=== PATIENT | female | born 1995 | race Caucasian/White ===

== ENCOUNTER 2016-09-14 13:45 | Emergency (ER) | payer SELFPAY ==
[2016-09-14 13:53] VITALS: BP 97/61
--- NOTE | 2016-09-14 15:03 | Emergency Department Report ---
ED Female HPI - General Chief complaint: Urogenital-Female Stated complaint: DIZZY/ODOR W/URINATION/HEADACHE Time Seen by Provider: 09/14/16 14:22 Source: patient Mode of arrival: Ambulatory Limitations: No Limitations - History of Present Illness Initial comments: Patient c/o strong odor to her urine and intermittent headache for several months. States headache feels like tightness around her head that goes away when she sleeps or takes Ibuprofen. Reports some vaginal discharge that is sometimes white or yellow. Denies fever, chills, change or blurring of her vision, vaginal pain or bleed, abdomen/pelvic/flank pain, dysuria, urgency, frequency. LMP 08/24/16 - Related Data Previous Rx's Medication Instructions Recorded Last Taken Type Acetaminophen/Codeine [Tylenol #3] 1 tab PO Q6H PRN #12 tab 11/27/14 Unknown Rx Doxycycline [Vibramycin CAP] 100 mg PO Q12HR #20 capsule 05/03/15 Unknown Rx Ibuprofen [Motrin] 600 mg PO Q8H PRN #30 tablet 05/03/15 Unknown Rx Butalb/Acetamin/Caff 50-325-40 1 each PO Q4H PRN #10 tablet 09/14/16 Unknown Rx [Fioricet] Fluconazole [Diflucan TAB] 150 mg PO ONCE #1 tablet 09/14/16 Unknown Rx Nitrofurantoin [place]/M-Cryst 100 mg PO Q12HR #14 capsule 09/14/16 Unknown Rx [Macrobid CAP] metroNIDAZOLE [Flagyl] 500 mg PO Q12HR #20 tab 09/14/16 Unknown Rx Allergies Allergy/AdvReac Type Severity Reaction Status Date / Time No Known Allergies Allergy Verified 11/11/14 11:34 ED Review of Systems ROS: Stated complaint: DIZZY/ODOR W/URINATION/HEADACHE Other details as noted in HPI ED Past Medical Hx - Past Medical History Previous Medical History?: No Hx Heart Attack/AMI: Yes - Surgical History Past Surgical History?: Yes Additional Surgical History: right wrist surgery - Social History Smoking Status: Never Smoker Substance Use Type: None - Medications Home Medications: Home Medications Medication Instructions Recorded Confirmed Last Taken Type Acetaminophen/Codeine [Tylenol #3] 1 tab PO Q6H PRN #12 tab 11/27/14 Unknown Rx Doxycycline [Vibramycin CAP] 100 mg PO Q12HR #20 capsule 05/03/15 Unknown Rx Ibuprofen [Motrin] 600 mg PO Q8H PRN #30 tablet 05/03/15 Unknown Rx Butalb/Acetamin/Caff 50-325-40 1 each PO Q4H PRN #10 tablet 09/14/16 Unknown Rx [Fioricet] Fluconazole [Diflucan TAB] 150 mg PO ONCE #1 tablet 09/14/16 Unknown Rx Nitrofurantoin [place]/M-Cryst 100 mg PO Q12HR #14 capsule 09/14/16 Unknown Rx [Macrobid CAP] metroNIDAZOLE [Flagyl] 500 mg PO Q12HR #20 tab 09/14/16 Unknown Rx ED Physical Exam - General Limitations: No Limitations General appearance: alert, in no apparent distress - Head Head exam: Present: atraumatic, normocephalic, normal inspection - Eye Eye exam: Present: normal appearance, PERRL, EOMI. Absent: scleral icterus, conjunctival injection, periorbital swelling, periorbital tenderness - ENT ENT exam: Present: normal exam, TM's normal bilaterally, normal external ear exam - Neck Neck exam: Present: normal inspection, full ROM. Absent: tenderness, meningismus, lymphadenopathy - Respiratory Respiratory exam: Present: normal lung sounds bilaterally. Absent: respiratory distress - Cardiovascular Cardiovascular Exam: Present: regular rate, normal rhythm - GI/Abdominal GI/Abdominal exam: Present: soft, normal bowel sounds. Absent: distended, tenderness, guarding, rebound, rigid - Extremities Exam Extremities exam: Present: normal inspection, full ROM, normal capillary refill. Absent: tenderness, pedal edema, joint swelling - Back Exam Back exam: Present: normal inspection, full ROM. Absent: tenderness, CVA tenderness (R), CVA tenderness (L) - Neurological Exam Neurological exam: Present: alert, oriented X3, normal gait, reflexes normal. Absent: motor sensory deficit - Psychiatric Psychiatric exam: Present: normal affect, normal mood - Skin Skin exam: Present: warm, dry, intact, normal color. Absent: rash, cyanosis, diaphoretic, erythema, petechiae, pallor, abrasion - Other Other exam information: DETAILED NEUROLOGICAL EXAMINATION: At present the patient is awake, alert and fully oriented. There is no evidence of cognitive or language dysfunction. Cranial nerves: Visual hernandez are full. Extraocular movements full. Pupils equal , round, react to light. There is no evidence of nystagmus noted. Fifth nerve function is normal. There is no facial asymmetry noted. Lower cranial nerves are normal. Manual motor testing reveals good tone and bulk throughout. There is no evidence of pronator drift or decreased fine finger movements. Muscle strength is 5/5 throughout. Deep tendon reflexes are 2+ throughout with downgoing toes. Sensory examination is intact to all modalities including stereognosis, graphesthesia. The patient is able to walk toe-heel and tandem walk. Finger-to- nose and [id number] moves are normal. I appreciated no obvious focal neuro deficits. ED Course Vital Signs 09/14/16 13:51 Temperature 98.8 F Pulse Rate 70 Respiratory 16 Rate Blood Pressure 97/61 O2 Sat by Pulse 97 Oximetry ED Medical Decision Making - Medical Decision Making 21 YOF with UTI based on UA result; BV on wet prep; and tension-type headache. Patient is stable. She ill be DC'd on appropriate meds for these (see rx). Patient education, follow up/referral, and return instructions provided. She verbalized understanding and is agreeable to plan. Critical care attestation.: If time is entered above; I have spent that time in minutes in the direct care of this critically ill patient, excluding procedure time. ED Disposition Clinical Impression: Tension headache, Vaginal discharge UTI (urinary tract infection) Qualifiers: Urinary tract infection type: site unspecified Hematuria presence: without hematuria Qualified Code(s): N39.0 - Urinary tract infection, site not specified Disposition: DISCHARGED TO HOME OR SELFCARE Is pt being admited?: No Does the pt Need Aspirin: No Condition: Stable Instructions: Bacterial Vaginosis (ED), Urinary Tract Infection in Women (ED), Tension Headache (ED) Prescriptions: Butalb/Acetamin/Caff 50-325-40 [Fioricet] 1 each PO Q4H PRN #10 tablet PRN Reason: Headache Fluconazole [Diflucan TAB] 150 mg PO ONCE #1 tablet metroNIDAZOLE [Flagyl] 500 mg PO Q12HR #20 tab Nitrofurantoin [place]/M-Cryst [Macrobid CAP] 100 mg PO Q12HR #14 capsule Referrals: PRIMARY CARE, [Primary Care Provider] - 3-5 Days ROMARIO MERAZ MD [Staff Physician] - 3-5 Days
[2016-09-14] MEDS ORDERED: FIORICET PO ONE (15:19)
[2016-09-14 15:57] LABS: Bilirubin,Urine NEG (Negative); Blood,Urine NEG (Negative); Ketones,Urine NEG (Negative); Leukocyte Esterase,Urine LG (Negative); Mucus,Urine FEW /HPF; Nitrite,Urine POS (Negative); Protein,Urine <15 mg/dL mg/dL (Negative); Urobilinogen,Urine < 2.0 mg/dL (<2.0)
== END 2016-09-14 17:11 | disposition home or self-care (01) ==
LOC: ED 13:45
DX: N39.0 Urinary tract infection, site not specified (principal); G44.209 Tension-type headache, unspecified, not intractable; I25.2 Old myocardial infarction
CPT/HCPCS: 81001; 81025; 87210; 99284

== ENCOUNTER 2016-12-18 13:18 | Emergency (ER) | payer SELFPAY ==
[2016-12-18 13:47] VITALS: BP 96/61
--- NOTE | 2016-12-18 14:11 | Emergency Department Report ---
Entered by ANNE-MARIE CARLOS, acting as scribe for STEPHANIE ESTRELLA NP. Chief Complaint: Syncope Stated Complaint: SYNCOPE Time Seen by Provider: 12/18/16 14:06 - HPI History of Present Illness: 21 year old female who is non toxic appearing, non ill appearing, in no acute distress presents s/p witnessed syncopal episode this morning. She reports feeling dizzy immediately prior to episodes. She reports associated SOB but denies abdominal pain, N/V, chest pain. She is reportedly 18 weeks . Denies vaginal bleeding, vaginal discharge. - ROS Review of Systems: Reports syncope, dizziness, shortness of breath. Denies nausea, vomiting, abdominal pain, vaginal bleeding, vaginal discharge, chest pain. - Exam Vital Signs: Vital Signs 12/18/16 13:42 Temperature 98.7 F Pulse Rate 73 Blood Pressure 96/61 O2 Sat by Pulse 100 Oximetry Physical Exam: Constitutional: Non toxic appearing, NAD. No obvious signs of external trauma. Cardiovascular: Normal rate and rhythm with normal S1/S2 sounds. Respiratory: No respiratory distress. Lung sounds clear to auscultation bilaterally. Abdomen: Abdomen is gravid. No tenderness to palpation in all quadrants. MSE screening note: Focused history and physical exam performed. Due to findings the following was ordered:EKG, CCK, CBC, CMP, serum HCG quantitative, UA ED Disposition for MSE Condition: Stable This documentation as recorded by the scribe,ANNE-MARIE CARLOS,accurately reflects the service I personally performed and the decisions made by DELORES figueroa MARTIN, ASTON.
[2016-12-18 14:37] LABS: Basophils % (Auto) 0.3 % (0.0-1.8); Eosinophils % (Auto) 0.9 % (0.0-4.3); Hematocrit 33.5 % (30.3-42.9); Hemoglobin 11.4 gm/dl (10.1-14.3); Mean Corpuscular HGB Conc 34 % (30-34); Mean Corpuscular Hemoglobin 27 pg (28-32); Mean Corpuscular Volume 80 fl (79-97); Platelet Count 229 K/mm3 (140-440); Red Blood Count 4.18 M/mm3 (3.65-5.03); Red Cell Distribution Width 13.2 % (13.2-15.2); White Blood Count 10.3 K/mm3 (4.5-11.0)
[2016-12-18 14:47] LABS: Alanine Aminotransferase 7 units/L (7-56); Albumin 3.9 g/dL (3.9-5); Albumin/Globulin Ratio 1.3 %; Alkaline Phosphatase 57 units/L (35-129); Anion Gap 15 mmol/L; BUN/Creatinine Ratio 16.66; Blood Urea Nitrogen 5 mg/dL (7-17); Calcium 8.7 mg/dL (8.4-10.2); Carbon Dioxide 23 mmol/L (22-30); Chloride 99.6 mmol/L (98-107); Creatine Kinase 48 units/L (30-135); Glucose 80 mg/dL (65-100); Potassium 3.8 mmol/L (3.6-5.0); Sodium 134 mmol/L (137-145); Total Protein 6.9 g/dL (6.3-8.2)
[2016-12-18 15:30] LABS: Creatine Kinase MB < 1.0 ng/mL (0.0-4.0)
[2016-12-18 16:02] LABS: Bacteria,Urine 1+ /HPF (Negative); Bilirubin,Urine NEG (Negative); Blood,Urine NEG (Negative); Ketones,Urine NEG (Negative); Leukocyte Esterase,Urine LG (Negative); Mucus,Urine FEW /HPF; Nitrite,Urine NEG (Negative); Protein,Urine <15 mg/dL mg/dL (Negative); Urobilinogen,Urine < 2.0 mg/dL (<2.0)
--- NOTE | 2016-12-20 19:56 | ED Elopement Review ---
ED Pt Elopement review - Results review Lab results: Laboratory Tests 12/18/16 12/18/16 12/18/16 14:14 14:14 14:14 WBC 10.3 RBC 4.18 Hgb 11.4 Hct 33.5 MCV 80 MCH 27 L MCHC 34 RDW 13.2 Plt Count 229 Lymph % (Auto) 14.1 [place] % (Auto) 4.1 Eos % (Auto) 0.9 Baso % (Auto) 0.3 Lymph # 1.5 [place] # 0.4 Eos # 0.1 Baso # 0.0 Seg Neutrophils % 80.6 H Seg Neutrophils # 8.3 H Sodium 134 L Potassium 3.8 Chloride 99.6 Carbon Dioxide 23 Anion Gap 15 BUN 5 L Creatinine 0.3 L Estimated GFR > 60 BUN/Creatinine Ratio 16.66 Glucose 80 Calcium 8.7 Total Bilirubin 0.20 AST 12 ALT 7 Alkaline Phosphatase 57 Total Creatine Kinase 48 CK-MB (CK-2) < 1.0 CK-MB (CK-2) Rel Index 2.0 Total Protein 6.9 Albumin 3.9 Albumin/Globulin Ratio 1.3 HCG, Quant 58091 H Urine Color Urine Turbidity Urine pH Ur Specific [place] Urine Protein Urine Glucose (UA) Urine Ketones Urine Blood Urine Nitrite Urine Bilirubin Urine Urobilinogen Ur Leukocyte Esterase Urine WBC (Auto) Urine RBC (Auto) U Epithel Cells (Auto) Urine Bacteria (Auto) Urine Mucus 12/18/16 15:08 WBC RBC Hgb Hct MCV MCH MCHC RDW Plt Count Lymph % (Auto) [place] % (Auto) Eos % (Auto) Baso % (Auto) Lymph # [place] # Eos # Baso # Seg Neutrophils % Seg Neutrophils # Sodium Potassium Chloride Carbon Dioxide Anion Gap BUN Creatinine Estimated GFR BUN/Creatinine Ratio Glucose Calcium Total Bilirubin AST ALT Alkaline Phosphatase Total Creatine Kinase CK-MB (CK-2) CK-MB (CK-2) Rel Index Total Protein Albumin Albumin/Globulin Ratio HCG, Quant Urine Color Yellow Urine Turbidity Slightly-cloudy Urine pH 8.0 H Ur Specific [place] 1.008 Urine Protein <15 mg/dl Urine Glucose (UA) Neg Urine Ketones Neg Urine Blood Neg Urine Nitrite Neg Urine Bilirubin Neg Urine Urobilinogen < 2.0 Ur Leukocyte Esterase Lg Urine WBC (Auto) 3.0 Urine RBC (Auto) 2.0 U Epithel Cells (Auto) 15.0 H Urine Bacteria (Auto) 1+ Urine Mucus Few - Call Back decision Pt Call Back Decision: No action required
== END 2016-12-18 14:45 | disposition left against medical advice (07) ==
LOC: ED 13:18
DX: O26.892 Other specified pregnancy related conditions, second trimester (principal); R55 Syncope and collapse; R06.02 Shortness of breath; Z3A.18 18 weeks gestation of pregnancy
CPT/HCPCS: 36415; 80053; 81001; 82550; 82553; 84702; 85025; 93005; 93010

== ENCOUNTER 2017-01-13 19:11 | Emergency (ER) | payer MEDICAID ==
[2017-01-13 20:03] VITALS: BP 100/58
--- NOTE | 2017-01-13 20:18 | Emergency Department Report ---
HPI - General Chief Complaint: Upper Respiratory Infection Time Seen by Provider: 01/13/17 20:18 - HPI HPI: Patient here complaining of coughing . runny nose and nasal congestion x 2 days. denies SOB, chest pain. reports throat pain from coughing 2/10. aching. no OTC meds taking. Patient said she is 21 weeks and goes to [facility] for care. She said she had a ultrasound done 1 week ago and baby was fine and she is having a boy. positive movement of fetus. No related problems. Denies fever or chills. ED Past Medical Hx - Past Medical History Previous Medical History?: No Hx Heart Attack/AMI: No Additional medical history: vaginal delivery 01-09-2014 - Surgical History Past Surgical History?: Yes Additional Surgical History: right wrist surgery - Family History Family history: no significant - Social History Smoking Status: Never Smoker Substance Use Type: None - Medications Home Medications: Home Medications Medication Instructions Recorded Confirmed Last Taken Type Acetaminophen/Codeine [Tylenol #3] 1 tab PO Q6H PRN #12 tab 11/27/14 Unknown Rx Doxycycline [Vibramycin CAP] 100 mg PO Q12HR #20 capsule 05/03/15 Unknown Rx Ibuprofen [Motrin] 600 mg PO Q8H PRN #30 tablet 05/03/15 Unknown Rx Butalb/Acetamin/Caff 50-325-40 1 each PO Q4H PRN #10 tablet 09/14/16 Unknown Rx [Fioricet] Fluconazole [Diflucan TAB] 150 mg PO ONCE #1 tablet 09/14/16 Unknown Rx Nitrofurantoin [place]/M-Cryst 100 mg PO Q12HR #14 capsule 09/14/16 Unknown Rx [Macrobid CAP] metroNIDAZOLE [Flagyl] 500 mg PO Q12HR #20 tab 09/14/16 Unknown Rx Sodium Chloride [Saline Nasal Mist] 126 ml NS BID PRN #1 mist 01/13/17 Unknown Rx guaiFENesin [Mucinex] 600 mg PO BID #10 tab.er.12h 01/13/17 Unknown Rx ED Review of Systems ROS: Stated complaint: COUGH/CONGESTION/PREG 21 WEEKS Other details as noted in HPI Comment: All other systems reviewed and negative Constitutional: denies: chills, fever, malaise Eyes: denies: eye pain, eye discharge ENT: throat pain, congestion. denies: ear pain Respiratory: cough. denies: shortness of breath, SOB with exertion, SOB at rest , stridor, wheezing Cardiovascular: denies: chest pain, palpitations, edema, syncope Gastrointestinal: denies: abdominal pain, nausea, vomiting, constipation Genitourinary: denies: urgency, dysuria, frequency, hematuria, discharge Skin: denies: rash Neurological: denies: headache, weakness, numbness, paresthesias, confusion, abnormal gait, vertigo Physical Exam - Physical Exam Vital Signs: Vital Signs 01/13/17 19:58 Temperature 98.4 F Pulse Rate 98 H Respiratory 18 Rate Blood Pressure 100/58 O2 Sat by Pulse 99 Oximetry General: This is a 21 yo female well-nourished and well developed in no acute distress. Physical Exam: Head, Normocephalic, Atraumatic Ears: Cecil Tm Congested without erythema, [place] Eac without redness, swelling or tenderness. Nose: Cecil nasal mucosa congested with clear drainage. Bi frontal and maxillary sinuses NTTP EYES:BPERRL, BEOMI, Sclera/conjunctiva without injection. NL accommodation. Neck:Supple, nttp. nO ADENOPATHY Mouth: Moist, No pharyngea erythema or exudate. Uvula midline and oral airway patent Lungs: CTAB. No adventitious sounds, NL work of breathing. CV: S1S2, RRR. No murmurs FHT: 168 BPM with doppler EXT. NO C/C/E. +2 pulses bilaterally. SKIN: CDI. no rash or lesions PSYch: normal mood and behavior ED Course Vital Signs 01/13/17 19:58 Temperature 98.4 F Pulse Rate 98 H Respiratory 18 Rate Blood Pressure 100/58 O2 Sat by Pulse 99 Oximetry - Reevaluation(s) Reevaluation #1: 01/13/17 21:52 Stable throughout ED stay ED Medical Decision Making - Medical Decision Making ED Course: I discussed with patient that she has a cold which will resolve on its own. She is taking PNV. I discussed diagnosis and treatment plan and she voiced understanding. FHT stable. She is to follow up with [facility] in morning. Patient discharge home with prescription for Mucinex and saline nasal wash. Critical care attestation.: If time is entered above; I have spent that time in minutes in the direct care of this critically ill patient, excluding procedure time. ED Disposition Clinical Impression: Cough in adult, Common cold Acute pharyngitis Qualifiers: Pharyngitis/tonsillitis etiology: unspecified etiology Qualified Code(s): J02.9 - Acute pharyngitis, unspecified Disposition: DISCHARGED TO HOME OR SELFCARE Is pt being admited?: No Does the pt Need Aspirin: No Condition: Stable Instructions: Acute Cough (ED), Cold Symptoms (ED), Pharyngitis (ED) Additional Instructions: Please follow up with [facility] in AM. Take Mucinex as prescribed gargle with warm salt water this will relieve sore throat use saline lavage to flush nostrils Prescriptions: guaiFENesin [Mucinex] 600 mg PO BID #10 tab.er.12h Sodium Chloride [Saline Nasal Mist] 126 ml NS BID PRN #1 mist PRN Reason: Congestion Referrals: Your ,[facility] [Other] - 3-5 Days PRIMARY CARE, [Primary Care Provider] - 01/14/17 Forms: Work/School Release Form(ED)
== END 2017-01-13 22:05 | disposition home or self-care (01) ==
LOC: ED 19:11
DX: J02.9 Acute pharyngitis, unspecified (principal); J00 Acute nasopharyngitis [common cold]
CPT/HCPCS: 99281

== ENCOUNTER 2018-05-31 16:37 | Emergency (ER) | payer SELFPAY ==
[2018-05-31 16:49] VITALS: BP 109/38
--- NOTE | 2018-05-31 17:27 | Emergency Department Report ---
ED Upper Extremity Inj HPI - General Chief Complaint: Extremity Injury, Upper Stated Complaint: FINGER/NAIL SORE Time Seen by Provider: 05/31/18 16:56 Source: patient Mode of arrival: Ambulatory Limitations: No Limitations - History of Present Illness Initial Comments: Plan 2-year-old female reports obtaining new elongated acrylic nails and accidentally hit an object causing a hyper extension of the nail and partial avulsions earlier today. Since that time. She reports right finger pain. He presents emergency department seeking fingernail removal. Complaint: Injury to:: finger (right fifth digit fingernail partially avulsed ) - Related Data Previous Rx's Medication Instructions Recorded Last Taken Type Acetaminophen/Codeine [Tylenol #3] 1 tab PO Q6H PRN #12 tab 11/27/14 Unknown Rx Doxycycline [Vibramycin CAP] 100 mg PO Q12HR #20 capsule 05/03/15 Unknown Rx Ibuprofen [Motrin] 600 mg PO Q8H PRN #30 tablet 05/03/15 Unknown Rx Butalb/Acetamin/Caff 50-325-40 1 each PO Q4H PRN #10 tablet 09/14/16 Unknown Rx [Fioricet] Fluconazole [Diflucan TAB] 150 mg PO ONCE #1 tablet 09/14/16 Unknown Rx Nitrofurantoin [place]/M-Cryst 100 mg PO Q12HR #14 capsule 09/14/16 Unknown Rx [Macrobid CAP] metroNIDAZOLE [Flagyl] 500 mg PO Q12HR #20 tab 09/14/16 Unknown Rx Sodium Chloride [Saline Nasal Mist] 126 ml NS BID PRN #1 mist 01/13/17 Unknown Rx guaiFENesin [Mucinex] 600 mg PO BID #10 tab.er.12h 01/13/17 Unknown Rx Allergies Allergy/AdvReac Type Severity Reaction Status Date / Time No Known Allergies Allergy Verified 11/11/14 11:34 ED Review of Systems ROS: Stated complaint: FINGER/NAIL SORE Other details as noted in HPI Constitutional: denies: chills, fever Eyes: denies: eye pain, eye discharge, vision change ENT: denies: ear pain, throat pain Respiratory: denies: cough, shortness of breath, wheezing Cardiovascular: denies: chest pain, palpitations Endocrine: no symptoms reported Gastrointestinal: denies: abdominal pain, nausea, diarrhea Genitourinary: denies: urgency, dysuria, discharge Musculoskeletal: denies: back pain, joint swelling, arthralgia Skin: other. denies: rash, lesions Neurological: denies: headache, weakness, paresthesias Psychiatric: denies: anxiety, depression Hematological/Lymphatic: denies: easy bleeding, easy bruising ED Past Medical Hx - Past Medical History Previous Medical History?: No Hx Heart Attack/AMI: No Additional medical history: vaginal delivery 01-09-2014 - Surgical History Past Surgical History?: No Additional Surgical History: right wrist surgery - Social History Smoking Status: Never Smoker Substance Use Type: None - Medications Home Medications: Home Medications Medication Instructions Recorded Confirmed Last Taken Type Acetaminophen/Codeine [Tylenol #3] 1 tab PO Q6H PRN #12 tab 11/27/14 Unknown Rx Doxycycline [Vibramycin CAP] 100 mg PO Q12HR #20 capsule 05/03/15 Unknown Rx Ibuprofen [Motrin] 600 mg PO Q8H PRN #30 tablet 05/03/15 Unknown Rx Butalb/Acetamin/Caff 50-325-40 1 each PO Q4H PRN #10 tablet 09/14/16 Unknown Rx [Fioricet] Fluconazole [Diflucan TAB] 150 mg PO ONCE #1 tablet 09/14/16 Unknown Rx Nitrofurantoin [place]/M-Cryst 100 mg PO Q12HR #14 capsule 09/14/16 Unknown Rx [Macrobid CAP] metroNIDAZOLE [Flagyl] 500 mg PO Q12HR #20 tab 09/14/16 Unknown Rx Sodium Chloride [Saline Nasal Mist] 126 ml NS BID PRN #1 mist 01/13/17 Unknown Rx guaiFENesin [Mucinex] 600 mg PO BID #10 tab.er.12h 01/13/17 Unknown Rx ED Physical Exam - General Limitations: No Limitations General appearance: alert, in no apparent distress - Head Head exam: Present: atraumatic, normocephalic - Eye Eye exam: Present: normal appearance Pupils: Present: normal accommodation - ENT ENT exam: Present: normal exam, mucous membranes moist - Neck Neck exam: Present: normal inspection, full ROM. Absent: lymphadenopathy - Respiratory Respiratory exam: Present: normal lung sounds bilaterally. Absent: respiratory distress, rales, rhonchi, accessory muscle use, decreased breath sounds - Cardiovascular Cardiovascular Exam: Present: regular rate, normal rhythm. Absent: systolic murmur, diastolic murmur, rubs, gallop - GI/Abdominal GI/Abdominal exam: Present: soft, normal bowel sounds - Extremities Exam Extremities exam: Present: normal inspection, other (fifth digit, right hand acrylic nail still in place. Nail is partially avulsed but still very secure. Mild redness to the base of the nail, but no swelling or paronychias present. No no foreign bodies are present. No filaments present. Full range of motion of the joint space.) - Back Exam Back exam: Present: normal inspection - Neurological Exam Neurological exam: Present: alert, oriented X3 - Psychiatric Psychiatric exam: Present: normal affect, normal mood - Skin Skin exam: Present: warm, dry, intact, normal color. Absent: rash ED Course Vital Signs 05/31/18 16:47 Temperature 98.5 F Pulse Rate 69 Respiratory 16 Rate Blood Pressure 109/38 O2 Sat by Pulse 100 Oximetry ED Medical Decision Making - Medical Decision Making Educated patient on proper nail care and partial avulsion nail management. Advised to the importance of follow-up, and also discuss the signs of infection as well. She is aware to clean the wound with enterobacteria soap and water often in the keep the finger elevated and iced Critical care attestation.: If time is entered above; I have spent that time in minutes in the direct care of this critically ill patient, excluding procedure time. ED Disposition Clinical Impression: Fingernail avulsion, partial Disposition: [id number] TO HOME OR SELFCARE Is pt being admited?: No Does the pt Need Aspirin: No Condition: Stable Additional Instructions: Nail Avulsion, Partial An avulsion is when a part of the nail becomes or detached from its normal position or place. In the case of a fingernail or toenail, this means either the complete or partial loss of the nail. Injury or trauma to your finger or toe is usually the cause. It can also be from an infection around or under the nail. Sometimes there is a cut in the nail bed or a fracture of the bone under the nail. If the nail is more severely injured, it may fall off completely in 1 to 2 weeks. This is not serious and in most cases, the nail will grow back from under the cuticle. This takes a few weeks to start and is complete in about 4 to 6 months for a fingernail and 12 months for a toenail. If the nail bed was damaged, the nail may grow back with a rough or irregular shape. Sometimes the nail may not regrow at all. Treatment If there is damage or a cut to the nail bed, which is below or under the nail, it may need to be repaired. Often, this is done with stitches. If the nail is still in good condition, sometimes it will be cleaned and trimmed, and put back in place. The reason for this is to assist and protect the new nail as it grows back, and to prevent the nail bed from drying out. Home care The following guidelines will help you care for your wound at home: Keep the injured part elevated to reduce pain and swelling. This is important, especially in the first 48 hours. Make an ice pack (ice cubes in a plastic bag, wrapped in a towel) and apply for 20 minutes every 2 hours during the first day, then 3 to 4 times a day to reduce swelling and pain until the swelling goes down. If a bandage was applied, change it once a day, unless told otherwise. Be careful not to pull on the nail when removing the dressing. If necessary, soak the dressing off while holding your finger or toe under warm running water. Apply a layer of antibiotic ointment onto the nail before putting on the new dressing or adhesive bandage. This will help keep it from sticking. You can also us a nonstick dressing or bandage without adhesive with the antibiotic ointment under the outer dressing. If an X-ray showed a fracture, it will take about 4 weeks for this to heal. The injured part should be protected with a splint or tape while it is healing. If you were given antibiotics to prevent infection, take them as directed until they are all gone. Here is some information about medications and your wound: You can take acetaminophen or ibuprofen for pain, unless you were given a different pain medicine to use. If you have chronic liver or kidney disease or ever had a stomach ulcer or GI bleeding or are taking blood thinner medications , talk with your doctor before using these medicines. If you were given antibiotics, take them until they are used up. It is important to finish the antibiotics even if the wound looks better. This is to make sure the infection has cleared. Follow-up care Follow up with your doctor or this facility as directed. Note: If X-rays were done and a radiologist had not seen them while you were being treated, they will be reviewed. You will be notified of any new findings that may affect your care. When to seek medical care Get prompt medical attention if any of the following occur: Pain or swelling increase Redness around the nail Pus (creamy white or yellow fluid) draining from the nail Fever of 100.4?F (38?C) or higher, or as directed by your health care provider Referrals: [facility] [Provider Group] - 3-5 Days
== END 2018-05-31 17:50 | disposition home or self-care (01) ==
LOC: ED 16:37
DX: S61.306A Unspecified open wound of right little finger with damage to nail, initial encounter (principal); W22.8XXA Striking against or struck by other objects, initial encounter; Y93.89 Activity, other specified; Y92.89 Other specified places as the place of occurrence of the external cause; Y99.8 Other external cause status
CPT/HCPCS: 99281; 99282